=== PATIENT | female | born 1980 | race Caucasian/White ===

== ENCOUNTER → 2016-06-08 | Outpatient (CLI) | payer BC ==
--- NOTE | 2016-06-08 20:05 | US ---
June 08, 2016 Dear Jonelle Navas CNM, Thank you for allowing me to see your patient Rossi Busch for detailed anatomy. As you k now, she is a 35-year-old 4, para 2012, with a dating 16 weeks 0 day(s). Her due d ate is 11/23/2016. Her history is significant for advanced maternal age, increased nuchal translucency in the first trimester, prior miscarriage with trisomy 16, family history of neural tube defect (her sibling, lost at 20 weeks), and family history of Potter's sequence (another sibling). She had reas suring NIPT screening. ULTRASOUND Number of fetuses: 1 presentation: Breech Maximum vertical pocket: 3.7 cm Placenta - Appearance: Normal - Location: Posterior - Cord insertion: Intraplacental - Placenta previa: None Maternal Structures - Cervix: 4.7 cm measured transabdominally - Uterus: No obvious masses or anomaly seen - The adnexa were evaluated. No pathology was seen. -- Right ovary visualized and appears normal. It measures 2.5 x 1.4 x 2.0 cm -- Left ovary visualized and appears normal. It measures 3.5 x 2.0 x 2.9 cm. There is a simple cyst measuring 1.8 x 1.6 x 2.0 cm. Measurements Biparietal diameter: 37 mm, 17 weeks 2 days Head circumference: 130 mm, 16 weeks 5 days Abdominal circumference: 105 mm, 16 weeks 3 days Femur length: 21 mm, 16 weeks 2 days Humerus length: 21 mm, 16 weeks 3 days Transcerebellar diameter: 16 mm, 16 weeks 3 days Nasal Bone: 5 mm Nuchal Skinfold Thickness: 4.4 mm, Normal Average ultrasound age: 16 weeks 5 days Estimated weight: 155 gm weight percentile: 69 % Anatomy Head and Neck: - Cranial shape and integrity: Normal - Cerebral lateral ventricles: Normal, 5.1 mm - Choroid plexus: Normal - Midline falx: Normal - Cavum septum pellucidi: Normal - Brain parenchyma: Normal - Cerebellum: Normal - Cisternal Magna: Normal, 3 mm - Cerebellar vermis: Normal - Neck: Normal Face: - Upper lip: Suboptimal - Profile: Normal - Coronal face: Normal - Alveolar ridge: Normal Heart: - 4-chamber view: Normal - LVOT: Suboptimal - RVOT: Suboptimal - Aortic arch: Suboptimal - SVC/IVC: Suboptimal - 3 vessel view: Suboptimal - heart rate: 156 bpm Lungs: Normal Diaphragm: Normal Abdomen: - Stomach: Normal - Kidneys: Right: Normal, Left: Normal - Bladder: Normal - Abdominal Cord Insertion: Normal - Umbilical cord vessel number: 3 - Liver: Normal Spine: - Cervical: Suboptimal - Thoracic: Suboptimal - Lumbar: Suboptimal - Sacral: Suboptimal - Shape and curvature: Suboptimal Extremities: - Right upper extremity: Normal architecture and position - Right Hand: Normal - Left upper extremity: Normal architecture and position - Left Hand: Normal - Right lower extremity: Normal architecture and position - Right foot: Suboptimal - Left lower extremity: Normal architecture and position - Left foot: Suboptimal Genitalia: Female Impression: 1. Intrauterine at 16 weeks 0 day(s), ultrasound is consistent with her established SHANEKA of 11/23/2016. 2. Anatomy: The fetus measures appropriate for gestational age, measuring a normal weight and percen tile. Visualization of the fetus today reveals no overt structural anomalies. Several areas are subop timally viewed due to the early gestational age. There is evidence of normal amniotic fluid, and fet al movement was seen during the examination. 3. Cervical length is normal at 4.7 cm without evidence of insufficiency. 4. Increased nuchal translucency. NT measured just above the 95th percentile in the first trimester . She had reassuring NIPT screening. We reviewed sensitivities, predictive values, and limitations of this testing. She had hoped to have an amniocentesis today. We reviewed the risks of the procedu re. The amnion and chorion do not appear to be fused on our imaging today, therefore we have resched uled her amniocentesis for next week to allow additional time for membrane fusion. She is amenable t o this. 5. Family history of Potter's sequence. Unlikely to recur. 6. Family history of open neural tube defect. Spine was suboptimally evaluated due to positio n and early gestational age. Recommendations: -Amniocentesis is scheduled for Sunday06/13/16 -Serum AFP screening to assess neural tube defect risk -Follow-up ultrasound in 4 weeks to complete the anatomy evaluation Thank you for allowing us the opportunity to evaluate your patient. Should you have any further ques tions or concerns please do not hesitate to contact me. Approximately 15 minutes were spent with the patient, of which 12 minutes were spent in [id number] consultation discussing screening and diagnosis and amniocentesis. Queenie Pugh M.D., Ph.D. Graining Operator Department of Obstetrics and Gynecology [facility]
--- NOTE | 2016-06-09 15:39 | US ---
Complete Obstetric Ultrasound dated July 09, 2016 Indication: Follow-up growth and echogenic focus. The estimated gestational age by LMP is 30 weeks 3 days yielding an EDC of August 14, 2016. Comparison: May 11, 2016 Findings: Number: 1 Presentation: Breech Placental location: Posterior Cervix: 4.7 cm HR: 156 bpm MVP: 3.7 cm Biometry: Biparietal diameter: 3.7 cm 17 weeks 2 days Head circumference: 13.0 cm 16 weeks 5 days Abdominal circumference: 10.5 cm 16 weeks 3 days Femur length: 2.1 cm 16 weeks 2 days Humerus length: 2.1 cm 16 weeks 3 days HC/AC: 1.24 (1.05 - 1.39) FL/BPD: 57% FL/AC: 20% Average ultrasound age: 16 weeks 5 days EDC based on today's average ultrasound age: November 18, 2016 Estimated weight is 155 +/- 23 gms. The estimated weight is at the 69 % based on previous dating. ANATOMY SURVEY: Supratentorial brain: Normal Posterior fossa: Normal Spine: Normal Nose and lips: Normal Facial profile: Normal Heart: Four chamber heart. Intact interventricular septum. Cardiac outflow tracts: Normal Stomach: Normal Umbilical cord insertion: Normal Kidneys: Normal, no pyelectasis Bladder: Normal Number of cord vessels: Three Upper extremities: Normal Lower extremities: Normal. No clubbing. Impression: 1. Living more . Size concordant with dates. The estimated gestational age by biometry is 16 weeks 5 days yielding an EDC of November 18, 2016. 2. Unremarkable anatomy. No anomalies detected. 3. Please see additional consultation by Dr. Queenie Pugh.
== END ==
LOC: FIMAGING 09:27
PROVIDERS: ATTEND Advanced Practice Midwife
DX: O09.523 Supervision of elderly multigravida, third trimester (principal); O35.8XX1 Maternal care for other (suspected) fetal abnormality and damage, fetus 1

== ENCOUNTER → 2016-06-13 | Outpatient (CLI) | payer BC ==
--- NOTE | 2016-06-13 17:29 | US ---
Dear Jonelle Navas CNM, Thank you for sending your patient, Rossi Busch, to us for a follow-up US and consultation to hardeep fontaine discuss amniocentesis. As you know, the patient is a 35 y.o. G4, P2012 at 16 weeks and 5 days with an EDC of 11/23/16 based on 1st trimester US. Her is complicated by AMA, thickened NT (2 .4 mm, >95%ile), prior miscarriage of a Trisomy 16 fetus, family history of ONTD (sibling, lost @ 20 weeks), and family history of Potter's Sequence (sibling). The fetus was noted to have a thickened NT on the 12 week US. The actual measurement was 2.4 mm which was just >95%ile (2.3 mm) for size. The couple was counseled regarding the increased risk of f etal aneuploidy (especially Trisomy 21 and 45X) as well as congenital cardiac anomalies, skeletal dys plasias, and single gene disorders such as Ponce De Leon syndrome. The couple opted to proceed with NIPT whi ch yielded reassuring results. An early anatomy US was performed at 16 +0 weeks which revealed no add itional sonographic markers of aneuploidy and no overt structural anomalies. However, the heart and spine were not well visualized at that time. Today, the couple is here to further discuss the op tion of amniocentesis. The patient denies any uterine contractions, vaginal bleeding, or loss of fluid. She reports excellen t movement. Today, she is without complaints. US FINDINGS: Number of fetuses: 1 Placental location: Posterior, no previa presentation: Transverse, head maternal left Cervix: 3.8 cm, transabdominally MVP: 5.6 cm Heart Rate: 149 bpm IMPRESSION: Today, we discussed at length the diagnostic capabilities of amniocentesis. We discussed that amnioce ntesis with a karyotype is the only test that can definitively exclude aneuploidy, includ ing Trisomy 21 and 45X. We reviewed that NIPT has a 99% detection rate for Trisomy 21 and a 95% speci ficity for the detection of Monosomy X (45X). The couple has already had reassuring NIPT results (46X X) this . We also discussed that karyotype, even with the addition of microarray, does not test for single gene disorders known to cause Ponce De Leon Syndrome or skeletal dysplasia. We reviewed that single gene disorders are only tested for prenatally if there is a family history of structural abnormality to guide that testing. After our discussion, the couple did not feel that amniocentesis with karyotype and microarray alone would help in their decision making. Our plan is to proceed with an anatomy scan with [facility] at 19 weeks. If any structural or cardiac anomalies are discovered at that t cristela, we will revisit amniocentesis with the possibility of more guided and specific testing. We will also further discuss the option of echocardiogram at that visit. Thank you again for sending this patient to see us today. Approximately 25 minutes were spent with th is patient today with 19 minutes of this time spent in direct face to face counseling regarding today 's US findings and our recommendations. Please contact me with any questions at . Delmy Bedoya MD Maternal- Medicine
--- NOTE | 2016-06-14 18:56 | US ---
Ultrasound OB Limited History: Advanced maternal age. Possible amniocentesis. Findings: Limited transabdominal images demonstrate the cervix is closed at 3.8 cm. Single viable i ntrauterine identified in transverse position, with the head to the maternal left. heart rate at 149 BPM. MVP: 5.6 cm. Impression: Single viable IUP, with heart rate at 149 BPM.
== END ==
LOC: FIMAGING 14:51
PROVIDERS: ATTEND Obstetrics & Gynecology
DX: O09.522 Supervision of elderly multigravida, second trimester (principal); Z3A.16 16 weeks gestation of pregnancy

== ENCOUNTER → 2016-06-29 | Outpatient (CLI) | payer BC ==
--- NOTE | 2016-06-29 17:06 | US ---
Dear Jonelle Navas CNM,, Thank you for sending your patient, Rossi Busch, to us for an US and consultation to assess fet al anatomy. As you know, the patient is a 35 y.o. G4, P2012 at 19 weeks and 0 days with an EDC of 11/23 based on a 1st trimester US. Her is complicated by AMA and a thickened NT (2.4 mm, >95% ile for GA). Rossi's family history is complicated by a sibling with an ONTD that demised at 20 weeks of pregn wendy and a sibling with Potter's Sequence. Rossi herself had miscarriage of a fetus with Trisomy 16. The fetus had a thickened NT of 2.4 mm at 12 weeks. The 95%ile cut-off for gestational age was 2.3 mm . She has had reassuring NIPT results and opted to decline amniocentesis after a reassuring early radha rubens US at 16 weeks. Genetic Screening: NIPT 46XX The patient denies any uterine contractions, vaginal bleeding, or loss of fluid. Today, she is withou t complaints. US FINDINGS: Number of fetuses: 1 Placental location: Posterior, No previa Placental Cord Insertion: Central presentation: Cephalic Cervix: 3.6 cm, on transvaginal ultrasound MVP: 4.8 cm The adnexa were evaluated. No pathology was seen. Right ovary: Suboptimal Left ovary: Suboptimal heart rate: 149 bpm Measurements: Biparietal diameter: 46 mm, 19 weeks 6 days Head circumference: 172 mm, 19 weeks 6 days Abdominal circumference: 149 mm, 20 weeks 2 days Femur length: 33 mm, 20 weeks 0 days Humerus length: 31 mm, 20 weeks 1 days Transcerebellar diameter: 22 mm, 20 weeks 2 days Average ultrasound age: 20 weeks 1 days Estimated weight: 336 g weight percentile: 97% Anatomy: Supratentorial brain: Normal Cerebral lateral ventricle: 6 mm Posterior fossa: Normal Cisterna magna: 6 mm Nuchal fold: 4.8 mm Face: - Lip: Normal - Profile: Normal - Alveolar Ridge: Appears intact Spine: -- Cervical: Normal -- Thoracic: Normal -- Lumbar: Normal -- Sacral: Normal Heart: -- 4 Chamber: Normal -- Intraventricular septum: Appears intact by Color and Spectral US -- Right Outflow Tract: Suboptimal -- Left Outflow Tract: Suboptimal -- 3 Vessel View: Suboptimal -- Aortic Arch: Normal -- Ductal Arch: Normal -- Caval View: Suboptimal Diaphragm: Appears intact Stomach: Normal Abdominal Umbilical Cord Insertion: Normal Right kidney: Normal Left kidney: Normal Bladder: Normal Number of cord vessels: 3 Upper extremities: -- Right Arm: Normal -- Right Hand: Suboptimal -- Left Arm: Normal -- Left Hand: Suboptimal Lower extremities: -- Right Leg: Normal -- Right Foot: Suboptimal -- Left Leg: Normal -- Left Foot: Suboptimal Gender: Female IMPRESSION: 1. Anatomy: The fetus measures appropriate for gestational age, measuring a normal weight and percen tile. Visualization of the fetus today reveals no overt structural anomalies. However, while no gross abnormalities are seen, the cardiac views remain suboptimal secondary to position and maternal habitus. There is evidence of normal amniotic fluid, and movement was seen during the examinat ion. - Follow-up in 4 weeks to reassess cardiac anatomy 2. Thickened NT: The patient has been extensively counseled regarding the risk of aneuploidy, c ardiac anomalies, skeletal dysplasia, and single gene disorders, such as Dover Syndrome. After this counseling, she opted not to proceed with amniocentesis after reassuring NIPT results and an early an atomy US. Today, no overt structural anomalies are seen, although the cardiac views remain suboptimal . The fetus is well grown and there is no evidence of a thickened nuchal fold. - If cardiac anatomy and growth continue to appear normal in 4 weeks, no further work-up will be levon mmended Thank you again for sending this patient to see us today. Approximately 15 minutes of a total visit t cristela of 12 minutes were spent with this patient today in direct face to face counseling regarding toda y's US findings and the above recommendations. Please feel free to contact me with any questions at . Delmy Bedoya MD Maternal- Medicine
--- NOTE | 2016-06-30 10:42 | US ---
Obstetrical Sonogram Detail Clinical Indications: Advanced maternal age. Check growth and anatomy and follow-up thickened nuchal fold with comparison to the previous examination June 13, 2016. Technique: Longitudinal and transverse images are obtained. Dr. Bedoya was present for the examinati on. Color Doppler evaluation is employed for assessment of vascularity. Findings: A single fetus is present in vertex presentation. Maternal cervical length is estimated at 3.6 cm. T he amount of amniotic fluid is normal with an MVP of 4.8 cm. The placenta is located posterior with no placenta previa. motion is identified. cardiac activity is documented with a heart rate estimated at 149 b eats per minute. A four-chamber heart view is obtained. Outflow tracts are suboptimally evaluated due to position. stomach, kidneys and bladder are normal. supratentorial brain, licensed mental health professional ior fossa and spine appear normal. No abnormality is identified. The maternal left ovary is visualized and appears normal. The right ovary is not seen. biometry: Biparietal diameter = 46 mm = 19 weeks 6 days Head circumference = 172 mm = 19 weeks 6 days Abdominal circumference = 149 mm = 20 weeks 2 days Femur length = 33 mm = 20 weeks 2 days Estimated weight 336 +/- 49 grams. This is at the 97th percentile based on last menstrual perio d. The estimated delivery date by ultrasound is November 15, 2016. This compares to the clinical date of Nov. Impression: Single live intrauterine gestation with estimated age by ultrasound of 20 weeks 1 day with an estimat ed delivery date of November 15, 2016. Interval growth has been appropriate. Some cardiac views were suboptimal and a repeat examination in 4 weeks is recommended. Please see Dr. Bedoya's report for findings and recommendations.
== END ==
LOC: FIMAGING 12:11
PROVIDERS: ATTEND Advanced Practice Midwife
DX: O36.8920 Maternal care for other specified fetal problems, second trimester, not applicable or unspecified (principal); O09.522 Supervision of elderly multigravida, second trimester; Z3A.19 19 weeks gestation of pregnancy

== ENCOUNTER → 2016-07-25 | Outpatient (CLI) | payer BC | LOC: FIMAGING 12:48 | PROVIDERS: ATTEND Advanced Practice Midwife | DX: O09.522 Supervision of elderly multigravida, second trimester (principal); O36.62X1 Maternal care for excessive fetal growth, second trimester, fetus 1; Z3A.21 21 weeks gestation of pregnancy ==

== ENCOUNTER 2016-11-08 18:50 | Inpatient (IN) | payer BC ==
[2016-11-08] MEDS ORDERED: OXYTOCIN/RINGERS LACTATE 1,000 ML IV PRN (19:14)
[2016-11-08] MEDS ORDERED: OLIVE OIL 118 ML BTL MISC PRN (19:14)
[2016-11-08] MEDS ORDERED: EPSOM SALT 454 GM TP PRN (19:14)
[2016-11-08] MEDS ORDERED: TERBUTALINE SULFATE 1 MG/ML VIAL IV PRN (19:14)
[2016-11-08 20:36] LABS: % IMMATURE GRANULYOCYTES 0.8 % (0.0-1.1); ABSOLUTE IMMATURE GRANULOCYTES 0.08 10^3/uL (0.00-0.10); ADD DIFF? NO; ADD MORPH? NO; ADD SCAN? NO; ATYPICAL LYMPHOCYTE FLAG 0 (0-99); FRAGMENT RBC FLAG 0 (0-99); HEMATOCRIT 37.2 % (38.0-47.0); HEMOGLOBIN 13.4 g/dL (12.6-16.3); LEFT SHIFT FLG 0 (0-99); LIPEMIA HEMOLYSIS FLAG 90 (0-99); MEAN CELL HEMOGLOBIN 34.4 pg (27.9-34.1); MEAN CELL VOLUME 95.6 fL (81.5-99.8); MEAN PLATELET VOLUME 10.3 fL (8.7-11.7); PLATELET CLUMPS FLAG 0 (0-99); PLATELET COUNT 194 10^3/uL (150-400); RED BLOOD CELL COUNT 3.89 10^6/uL (4.18-5.33); RED CELL DISTRIBUTION WIDTH 13.5 % (11.5-15.2)
--- NOTE | 2016-11-08 20:54 | GHP ---
[f rep st] HISTORY AND PHYSICAL DATE OF ADMISSION: 11/08/2016 ADMITTING DIAGNOSIS: 1. Intrauterine at 37 and 6/7 weeks. 2. Spontaneous rupture of membranes. HISTORY OF PRESENT ILLNESS: The patient is a 36-year-old, 4, para 2-0-1 -2 at 36-6/7 weeks, with an estimated due date 11/23/2016 by LMP 02/07/2017 and confirmed by 1st trimester ultrasound. The patient presents with complaints of leakage of fluid, clear since 6 p.m. this evening. States occasional contractions. Denies any vaginal bleeding. Good movement noted. Patient does have good care at [facility] and presented in her 1st trimester. is complicated by advanced maternal age. The patient did have an elevated nuchal translucency, but genetic testing was negative. The patient is Rh negative. Did receive RhoGAM 09/05/2016. History of LGA x2 and elevated BMI. The patient did receive Tdap. GBS is negative. The patient developed anemia of , and is tolerating iron. At 35 weeks, she was size greater than dates, and had an ultrasound with an estimated weight of 98 percentile and polyhydramnios. OB HISTORY: September 2010, she had a vaginal delivery at term, a viable female infant weighing 8 pounds 8 ounces. Delivery via forceps. January 2013, she had an uncomplicated vaginal delivery at term, a viable male , weighing 9 pounds 8 ounces. She then had a missed AB in December 2015 that required a D and C. 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 Cycles are regular every 28 days. She bleeds for 4-5 days. Patient denies a history of abnormal Pap smears or any sexually transmitted diseases. PAST MEDICAL HISTORY: Unremarkable. PAST SURGICAL HISTORY: Benign lump removed from her back under local. D and C. MEDICATIONS: Include vitamins, DHA. ALLERGIES: Latex and penicillin. SOCIAL HISTORY: The patient is . She lives with her Blaze, and their 2 children. The patient is a nonsmoker. Denies alcohol or illicit drug use. REVIEW OF SYSTEMS: A 10-point review of systems was negative. Pertinent positives are noted in HPI. LABS: AB negative, Antibody negative. HIV negative. Hepatitis B surface antigen negative. Rubella immune. RPR nonreactive. 1-hour Glucola was normal. Verifi is negative. H and H 12.2 and 35.7. Gonorrhea and chlamydia cultures negative. GBS is negative. FAMILY HISTORY: Noncontributory. PHYSICAL EXAM: VITAL SIGNS: On admission, vital signs are stable. The patient is afebrile. GENERAL: A well-nourished, well-developed female, alert and oriented x3. CARDIOVASCULAR: Regular rate and rhythm. LUNGS: Clear to auscultation bilaterally. ABDOMEN: Gravid, soft, nontender, nondistended. PELVIS: She is grossly ruptured, large amount of clear fluid. On exam, she is 2 -3 cm dilated, 90% and -1 station. EXTREMITIES: Normal to inspection without edema or calf tenderness. heart tones shows a Category I strip. Baseline of 150 beats per minute, positive accelerations, no decelerations, moderate variability, and she is velia occasionally. ASSESSMENT: The patient is a 36-year-old, 4, para 2-0-1-2 at 37-6/7 weeks with spontaneous rupture of membranes. PLAN: 1. Admit to Labor and Delivery. 2. Expectant management. 3. GBS is negative. No prophylactic antibiotics needed. 4. If there are no contractions noted, will start Pitocin. /[id number]/MODL MTDD
[2016-11-08] MEDS ORDERED: OLIVE OIL 118 ML BTL ONE (22:07)
[2016-11-08] MEDS ORDERED: OXYTOCIN 10 UNIT/ML VIAL ONE (22:07)
[2016-11-08] MEDS ORDERED: LIDOCAINE 1% 300 MG/30 ML SDV ONE (22:07)
[2016-11-08] MEDS ORDERED: TERBUTALINE SULFATE 1 MG/ML VIAL ONE (22:07)
[2016-11-08] MEDS ORDERED: MISOPROSTOL 200 MCG TAB ONE (22:07)
[2016-11-08] MEDS ORDERED: AMMONIA AROMATIC 1 EACH AMP IH ONE (22:07)
[2016-11-08] MEDS ORDERED: LR 500 ML IV PRN (22:09)
[2016-11-08] MEDS: LR 1,000 ML IV PRN (22:19)
[2016-11-08] MEDS ORDERED: OXYTOCIN/RINGERS LACTATE 500 ML IV SCH (22:30)
--- NOTE | 2016-11-09 04:41 | OBPROG ---
OBG Labor Progress Note Assessment/Plan: Assessment: 36 y/o @ 38 weeks with SROM Plan: Pt is using Nitrous FHTs - Cat I tracing Pitocin at 10 mu/min Pushed x 20 min with little descent of head, suspect OP Will have pt labor down Anticipate 11/09/16 04:39 Subjective: Pt is using nitrous during ctx's. Objective: 11/08/16 20:00 Patient ABO/Rh AB NEGATIVE 11/08/16 20:00 - SVE Dilation (cm): 10 Effacement (%): 100 Station: 0 [place] Current Contraction Pattern: Regular FHR (bpm): 130 FHR Pattern Variability: Moderate FHR Category: 1 Membranes: SROM Amniotic Fluid Color: Clear Oxytocin Orders Assessment - Pre-Induction/Augmentation Assessment Gestational Age: 37 week(s) and 6 day(s) ICD10 Worksheet Patient Problems: Problems Problem Status Onset SROM (spontaneous rupture of membranes) Acute
[2016-11-09] MEDS ORDERED: BUPIVACAINE 0.25% 30 ML SDV ONE (05:28)
[2016-11-09] MEDS ORDERED: fentaNYL 2MCG/ML/BUP 0.1% RTU 100 ML BAG EP ONE (05:28)
[2016-11-09] MEDS ORDERED: PHENYLEPHRINE HCL 100 MCG/ML SYR ONE (05:28)
[2016-11-09] MEDS ORDERED: fentaNYL 100 MCG/2 ML INJ ONE (05:30)
[2016-11-09] MEDS ORDERED: ACETAMINOPHEN 500 MG TAB PO ONE (05:30)
[2016-11-09] MEDS ORDERED: PHENYLEPHRINE HCL 100 MCG/ML SYR IVP PRN (06:35)
[2016-11-09] MEDS ORDERED: NALOXONE HCL 0.4 MG/ML INJ IVP PRN (06:35)
[2016-11-09] MEDS ORDERED: ONDANSETRON 4 MG/2 ML VIAL IVP PRN (06:35)
[2016-11-09] MEDS ORDERED: LR 500 ML IV SCH (07:00)
[2016-11-09] MEDS ORDERED: fentaNYL 2MCG/ML/BUP 0.1% RTU 100 ML EP SCH (07:00)
--- NOTE | 2016-11-09 08:23 | OBPROG ---
OBG Labor Progress Note Assessment/Plan: Assessment:cat 2 fhr contractions q2-4 minutes pitocin at [address] pain relieved pain level o exam 10/100/+1 station epidural crawl to assist with descent and rotation complete at 0401 Plan:reexam at 0900 nurse sergio made aware of POC/ consult with physcian on poc 11/09/16 08:19 11/09/16 08:23 Subjective: Feeling comfortable after the epidural Objective: 11/08/16 20:00 Patient ABO/Rh AB NEGATIVE 11/08/16 20:00 - SVE Dilation (cm): 10 Effacement (%): 100 Station: +1 Oxytocin Orders Assessment - Pre-Induction/Augmentation Assessment Gestational Age: 37 week(s) and 6 day(s) ICD10 Worksheet Patient Problems: Problems Problem Status Onset SROM (spontaneous rupture of membranes) Acute
[2016-11-09] MEDS: IBUPROFEN 600 MG TAB PO PRN ×3 (12:12→23:48)
[2016-11-09] MEDS: LR 1,000 ML IV PRN (12:13)
--- NOTE | 2016-11-09 12:24 | OBDEL ---
Info Type: Vaginal GBS+: No Indications for Delivery: Spontaneous Labor Vaginal Delivery - Labor and Delivery Onset of Contractions Date: 11/09/16 Onset of Contractions Time: 01:00 Onset of Contractions Type: Augmented Rupture of Membranes Date: 11/08/16 Rupture of Membranes Time: 18:00 Rupture of Membranes Type: Spontaneous Amniotic Fluid Color: Clear Dilation Complete Date: 11/09/16 Dilation Complete Time: 01:00 Placenta Delivery Date: 11/09/16 Placenta Delivery Time: 11:57 Total Hours of Labor: 10 Laceration: 2nd Degree Repair: 3-0 Vaginal Sponge Count Correct: Yes Vaginal Needle Count Correct: Yes Vaginal Sweep Performed: No EBL: 350 Delivery Events: None - Medications Labor Augmentation/Induction Methods Used: Pitocin Labor Augmentation/Induction Indication: LGA, Other (Specify) (srom) Kayenta Data [place] Delivery Date: 11/09/16 Delivery Time: 11:48 Sex of Infant: Female Score (1 Min): 8 Score (5 Min): 9 ICD10 Worksheet Patient Problems: Problems Problem Status Onset SROM (spontaneous rupture of membranes) Acute
[2016-11-09] MEDS ORDERED: SIMETHICONE 80 MG TAB CHEW PO PRN (12:26)
[2016-11-09] MEDS ORDERED: HYDROCORTISONE 0.5% CREAM TP PRN (12:26)
[2016-11-09] MEDS ORDERED: ACETAMINOPHEN 325 MG TAB PO PRN (12:26)
[2016-11-09] MEDS: HYDROCODONE/APAP 5/325 TAB PO PRN ×2 (22:51→23:35)
[2016-11-10] MEDS: HYDROCODONE/APAP 5/325 TAB PO PRN ×4 (03:26→22:47)
[2016-11-10] MEDS: IBUPROFEN 600 MG TAB PO PRN ×3 (05:42→18:18)
--- NOTE | 2016-11-10 08:13 | OBPROG ---
OBG Labor Progress Note Assessment/Plan: Assessment: s/p PPD # 1 - pt is stable Plan: Continue routine pp care Encourage ambulation Plan for d/c home in am 11/1111/10/16 08:12 Objective: 11/10/16 05:45 Patient ABO/Rh AB NEGATIVE 11/08/16 20:00 Temp Pulse Resp BP Pulse Ox 36.2 C 71 17 110/58 L 94 11/09/16 20:11 11/09/16 20:11 11/09/16 20:11 11/09/16 20:11 11/09/16 20:11 - SVE Dilation Complete Date: 11/09/16 Dilation Complete Time: 01:00 Oxytocin Orders Assessment - Pre-Induction/Augmentation Assessment Gestational Age: 37 week(s) and 6 day(s) ICD10 Worksheet Patient Problems: Problems Problem Status Onset SROM (spontaneous rupture of membranes) Acute
--- NOTE | 2016-11-10 08:17 | OBPP ---
Progress Note Assessment/Plan: Assessment: 1) s/p PPD # 1 - pt is stable 2) Anemia - pt is asymptomatic 3) Rh negative - Rhogam eval Plan: Continue routine pp care Will start iron BID Encourage ambulation Plan for d/c home in am 11/1111/10/16 08:14 Subjective: Pt seen and examined. Some cramping this morning, but overall doing well. Taking Gaston with relief. She is voiding without difficulty and passing flatus. No BM yet. Moderate lochia. BF, but baby girl is sleepy. Objective: 11/10/16 05:45 Patient ABO/Rh AB NEGATIVE 11/08/16 20:00 Temp Pulse Resp BP Pulse Ox 36.2 C 71 17 110/58 L 94 11/09/16 20:11 11/09/16 20:11 11/09/16 20:11 11/09/16 20:11 11/09/16 20:11 Uterine Position/Fundal Height: Umbilicus -2 Uterine Tone: Firm Physical Exam - Physical Exam General Appearance: WD/WN, alert, no apparent distress Respiratory: lungs clear, normal breath sounds Cardiac/Chest: regular rate, rhythm Abdomen: normal bowel sounds, non-tender, soft, flatus (+) Extremities: non-tender, normal inspection Skin: normal color, warm/dry Neuro/Psych: alert, normal mood/affect, oriented x 3
[2016-11-10] MEDS: DOCUSATE SODIUM 100 MG CAP PO PRN ×2 (08:38→22:44)
[2016-11-10] MEDS: IRON POLYSAC/IRON HEME 28 MG TAB PO SCH ×2 (08:38→22:44)
[2016-11-11] MEDS: IBUPROFEN 600 MG TAB PO PRN ×2 (00:22→06:13)
[2016-11-11] MEDS: DOCUSATE SODIUM 100 MG CAP PO PRN (09:00)
[2016-11-11] MEDS: IRON POLYSAC/IRON HEME 28 MG TAB PO SCH (09:00)
--- NOTE | 2016-11-11 10:56 | OBPP ---
Progress Note Assessment/Plan: Assessment: well pain well managed ff@u scant rubra lochia perineum approximated minimal swelling voiding without difficulty Plan discharge to home with instructions fu 4 and 6 weeks, , pain management, exercise, depression, pelvic rest, exercise, rest, ss infection, pericare. bleeding patterns. Verbalized understanding of all of the above 11/09/16 08:19 11/09/16 08:23 11/11/16 10:52 Subjective: Doing well denies difficulties. well. Pain well managed. Bleeding minimal. Voiding without difficulty Objective: 11/10/16 05:45 Patient ABO/Rh AB NEGATIVE 11/08/16 20:00 Temp Pulse Resp BP Pulse Ox 36.1 C 69 17 114/74 95 11/10/16 08:00 11/10/16 19:52 11/10/16 19:52 11/10/16 19:52 11/10/16 19:52 Uterine Position/Fundal Height: At Umbilicus Uterine Tone: Firm Physical Exam - Physical Exam General Appearance: WD/WN, alert, no apparent distress Abdomen: other (ff@u) Extremities: Sandra's sign (negative bilaterally) DTR- Lower Extremities: Knee (R): 1+, Knee (L): 1+ (no clonus) Skin: normal color, warm/dry Neuro/Psych: no motor/sensory deficits, alert, normal mood/affect, oriented x 3
--- NOTE | 2016-11-11 11:03 | OBGCSDC ---
General Delivery Information - General Info : 4 Para: 3 Delivery Physician/CNM: Jonelle Navas Labs: Patient ABO/Rh AB NEGATIVE 11/08/16 20:00 Hct 35.2 % (38.0-47.0) L 11/10/16 05:45 Vaginal - Diagnosis Labor: Augmented Rupture of Membranes Type: Spontaneous Amniotic Fluid Color: Clear Laceration: 2nd Degree Repair: 3-0 Delivery Events: None - Operations/Procedures L&D Analgesia/Anesthesia Type: Epidural, Nitrous - Hospital Course Antepartum: No difficultys with the pregnacy. LGA baby frequent looks at growth Intrapartum: IOL, for lga epidural delivered vaginally, 2 degree laceration repiared under epidural with 3.0 vicryl : well. PAin well managed. No difficultys - Delivery L&D Analgesia/Anesthesia Type: Epidural, Nitrous [place] [facility] [place] Delivery Date: 11/23/16 Delivery Time: 11:46 SHANEKA: 11/23/16 Gestational Age: 38 week(s) and 2 day(s) Sex of Infant: Female Weight (gm): 3878 g Score (1 Min): 8 Score (5 Min): 9 Discharge Information - Discharge Information Condition: Good
[2016-11-11 11:05] VITALS: BP 133/81; PULSE 58; RESP 20; TEMP 97.4; O2SAT 96
--- NOTE | 2016-11-11 11:05 | OBGCSDC ---
General Delivery Information - General Info : 4 Para: 3 Delivery Physician/CNM: Jonelle Navas Labs: Patient ABO/Rh AB NEGATIVE 11/08/16 20:00 Hct 35.2 % (38.0-47.0) L 11/10/16 05:45 Vaginal - Diagnosis Labor: Augmented Rupture of Membranes Type: Spontaneous Amniotic Fluid Color: Clear Laceration: 2nd Degree Repair: 3-0 Delivery Events: None - Operations/Procedures L&D Analgesia/Anesthesia Type: Epidural, Nitrous - Hospital Course Intrapartum: Augmentation of labor for srom not IOL - Delivery L&D Analgesia/Anesthesia Type: Epidural, Nitrous Data [place] Delivery Date: 11/23/16 Delivery Time: 11:46 SHANEKA: 11/23/16 Gestational Age: 38 week(s) and 2 day(s) Sex of : Female Weight (gm): 3878 g Score (1 Min): 8 Score (5 Min): 9 Discharge Information - Discharge Information Condition: Good
== END 2016-11-11 12:10 | disposition home or self-care (01) | DRG 775 ==
LOC: FLD 18:50 → FOB 11-09 15:32
PROVIDERS: ADMIT Obstetrics & Gynecology; ATTEND Obstetrics & Gynecology
DX: O36.63X0 Maternal care for excessive fetal growth, third trimester, not applicable or unspecified (principal); Z37.0 Single live birth; O99.02 Anemia complicating childbirth; D50.9 Iron deficiency anemia, unspecified; Z3A.37 37 weeks gestation of pregnancy; O70.1 Second degree perineal laceration during delivery
CPT/HCPCS: J2370; J2590; J3010; J3105